=== PATIENT | female | born 1945 | race Caucasian/White ===

== ENCOUNTER 2018-06-30 08:17 | Day surgery (SDC) | payer MEDICARE, OTHER ==
[2018-06-30] MEDS ORDERED: PROPOFOL 20 ML (09:08)
== END 2018-06-30 12:53 | disposition home or self-care (01) ==
LOC: GIL 08:17
DX: R19.4 Change in bowel habit (principal); K21.9 Gastro-esophageal reflux disease without esophagitis; K29.70 Gastritis, unspecified, without bleeding; K57.90 Diverticulosis of intestine, part unspecified, without perforation or abscess without bleeding; K64.8 Other hemorrhoids; D12.6 Benign neoplasm of colon, unspecified; I10 Essential (primary) hypertension; Z85.72 Personal history of non-Hodgkin lymphomas
CPT/HCPCS: 43239; 88305